=== PATIENT | female | born 1960 | race Caucasian/White ===

== ENCOUNTER 2020-01-20 09:04 | Outpatient (REF) | payer BC, MEDICARE, SELFPAY ==
--- NOTE | 2020-01-22 08:09 | MHC.AU.AEV ---
Adult Audiological Evaluation Date of Visit: 01/20/20 Reason for Appointment: Audiologic re-evaluation due to question of change in hearing ability. Previous Hearing Test Results: 10/31/2018 Asymmetric moderate to profound sensorineural hearing loss with conductive components for the right ear in the low frequencies. Speech understanding was 84% for the right ear and 92% for the left ear at a listening level of 85 dB HL. Medical History: Medical History: Kera reports no changes in medical conditions or medications since last year's test. Hearing Instrument History- Right Ear: Booster Plant Operator: Phonak Model: TapnScrapeo V 90-13 Serial Number: [id number] Battery Size: 13 Warranty: 12/20/2019 Hearing Instrument History- Left Ear: Booster Plant Operator: Landpointak Model: TapnScrapeo V 90-13 Serial Number: [id number] Battery Size: 13 Warranty: 12/20/2019 Otoscopy: Right Ear: Unremarkable Left Ear: Unremarkable Tympanometry: Right Ear: Normal Middle Ear System (Type A) Left Ear: Normal Middle Ear System (Type A) Hearing Evaluation: Transducer(s) Used: Insert Earphones Bone Conduction Method: Conventional Audiometry Stimuli Used: Pure Tones Right Ear: Description of Hearing: Moderately-severe to severe mixed hearing loss Left Ear: Description of Hearing: Moderate to profound sensorineural hearing loss Speech Recognition Threshold (SRT): Method Used: Monitored Live Voice Stimuli Used: Spondee Words Right Ear: 50 Left Ear: 55 Word Discrimination: Method: Recorded Lists Word Lists Used: NU-6 Right Ear: 75% at 85 dB HL Left Ear: 80% at 85 dB HL Comparison: Compared to the most recent evaluation: Hearing is stable. Recommendations: Recommendations: Audiological re-evaluation in one year. Recommendations (Other): The right hearing aid has been intermittent. Sending out for repair. Diagnosis: Primary Diagnosis: H90.3 Bilateral Sensorineural Hearing Loss Services Performed: Services Performed: Comprehensive Audiological Evaluation (CPT 54030) Tympanometry (CPT 36614) Signature: Provider: Constantino Montiel CCC-A Adult Audiological Evaluation AUD- Audiology Adult New Evaluation Start: 01/20/20 14:05 Freq: Status: Discharge Protocol: Activity Type Activity Date Activity User E-Sign Co-Sign Detail Recorded Client Recorded Date Recorded By Document 01/20/20 14:05 LUCRECIA [id number] 01/20/20 14:06 LUCRECIA 01/20/20 14:05 Adult Audiological Evaluation [Date of Visit] -Date of Visit 01/20/20 [Reason For Appointment] -Reason for Appointment Audiologic re- evaluation due to question of change in hearing ability . -Does patient feel they have a hearing Yes loss? -If Yes, Which Ear? Both Ears [Previous Testing] -Has hearing been tested previously? Yes -Previous Hearing Test Results 10/31/2018 Asymmetric moderate to profound sensorineural hearing loss with conductive components for the right ear in the low frequencies. Speech understanding was 84% for the right ear and 92% for the left ear at a listening level of 85 dB HL. [Medical History] -Medical History Kera reports no changes in medical conditions or medications since last year 's test. [Hearing Instrument History- Right Ear] -Booster Plant Operator- Right Ear Phonak -Model- Right Audeo V 90-13 -Serial Number- Right [id number] -Battery Size- Right 13 -Warranty- Right 12/20/2019 -Dispensed By [facility] -Date of Fittin09/30/2015 [Hearing Instrument History- Left] -Booster Plant Operator- Left Ear Phonak -Model- Left Audeo V 90-13 -Serial Number- Left [id number] -Battery Size- Left 13 -Warranty- Left 12/20/2019 -Dispensed By [facility] [Otoscopy] -Otoscopy- Right Ear Unremarkable -Otoscopy- Left Ear Unremarkable [Tympanometry] -Tympanometry- Right Ear Normal Middle Ear System ( Type A) -Tympanometry- Left Ear Normal Middle Ear System ( Type A) [Otoacoustic Emissions] -Otoacoustic Emissions- Right Ear Not performed at today's visit. -OAE Analysis- Right Ear Not performed at today's visit [Hearing Test Methods] -Transducer(s) Used Insert Earphones,Bone Conduction -Method Conventional Audiometry -Stimuli Used Pure Tones [Hearing- Right Ear] -Description of Hearing- Right Ear Moderately- severe to severe mixed hearing loss [Hearing- Left Ear] -Description of Hearing- Left Ear Moderate to profound sensorineural hearing loss [Speech Recognition Threshold (SRT)] -Method Used Monitored Live Voice -Stimuli Used Spondee Words -Speech Recognition Threshold (SRT)- 50 Right Ear (in dBHL) -Speech Recognition Threshold (SRT)- 55 Left Ear (in dBHL) [Word Discrimination] -Method: Recorded Lists -Word Lists Used: NU-6 -Word Discrimination- Right Ear 75% at 85 dB HL -Word Discrimination- Left Ear 80% at 85 dB HL [Compared to Most Recent Evaluation:] -Compared to the most recent Hearing is evaluation: stable. [Recommendations] -Recommendations Audiological re -evaluation in one year. -Recommendations (Other) The right hearing aid has been intermittent. Sending out for repair. [Diagnosis] -Primary Diagnosis: H90.3 Bilateral Sensorineural Hearing Loss -Secondary Diagnosis: N/A [Services Performed] -Services Performed Comprehensive Audiological Evaluation (CPT 73909), Tympanometry ( CPT 20370) Signature [Signature] -Provider Constantino Montiel, [facility]
--- NOTE | 2020-01-22 08:11 | MHC.AU.P13 ---
Adult Audiological Evaluation Date of Visit: 01/20/20 Reason for Appointment: Audiologic re-evaluation due to question of change in hearing ability. Has hearing been tested previously?: Yes Previous Hearing Test Results: 10/31/2018 Asymmetric moderate to profound sensorineural hearing loss with conductive components for the right ear in the low frequencies. Speech understanding was 84% for the right ear and 92% for the left ear at a listening level of 85 dB HL. Otoscopy: Right Ear: Unremarkable Left Ear: Unremarkable Tympanometry: Right Ear: Normal Middle Ear System (Type A) Left Ear: Normal Middle Ear System (Type A) Otoacoustic Emissions Results: Not performed at today's visit. Hearing Evaluation: Right Ear: Description of Hearing: Moderately-severe to severe mixed hearing loss Left Ear: Description of Hearing: Moderate to profound sensorineural hearing loss Soundfield (At Least the Better Ear): Description of Hearing: Speech Recognition Threshold (SRT): Right Ear: 50 Left Ear: 55 Soundfield: Word Discrimination: Right Ear: 75% at 85 dB HL Left Ear: 80% at 85 dB HL Soundfield: Comparison: Compared to the most recent evaluation: Hearing is stable. Recommendations: Recommendations: Audiological re-evaluation in one year. Recommendations (Other): The right hearing aid has been intermittent. Sending out for repair. Diagnosis: Primary Diagnosis: H90.3 Bilateral Sensorineural Hearing Loss Services Performed: Services Performed: Comprehensive Audiological Evaluation (CPT 46109) Tympanometry (CPT 28453) Signature: Provider: Constantino Montiel, [facility]
== END 2020-01-20 09:05 | disposition home or self-care (01) ==
LOC: HO.SH 09:04
PROVIDERS: PCP Internal Medicine; Visit Provider Internal Medicine
DX: H90.3 Sensorineural hearing loss, bilateral (principal)
CPT/HCPCS: 92557; 92567

== ENCOUNTER 2020-02-03 11:05 | Outpatient (REF) | payer SELFPAY | END 2020-02-03 11:06 | disposition home or self-care (01) | LOC: HO.HAP 11:05 | PROVIDERS: PCP Internal Medicine; Referring Provider Internal Medicine; Visit Provider Internal Medicine | DX: Z13.89 Encounter for screening for other disorder (principal) | CPT/HCPCS: V5014 ==

== ENCOUNTER 2020-02-21 14:57 | Outpatient (REF) | payer SELFPAY ==
--- NOTE | 2020-03-02 15:26 | MHC.AU.P13 ---
Hearing Instrument Follow-Up- Binaural Date of Visit: 02/24/20 Chemist Helper Used: Right Ear: Kindergarten Prep Teacher: Model: Audeo V 90-13 Serial Number: [id number] Warranty: 12/20/2019 Battery Size: 13 Color: Celso Beige Type of Mold: integrated c-shell Type of Wax Guard: Cerustop Dispensed By: [facility] Date of Fittin09/30/2015 Left Ear: Kindergarten Prep Teacher: Phonak Model: Audeo V 90-13 Serial Number: [id number] Warranty: 12/20/2019 Battery Size: 13 Color: Celso Beige Type of Mold: integrated c-shell Type of Wax Guard: CeruStop Dispensed By: [facility] Follow-Up Summary: Patient's hearing aid was dropped off on Monday afternoon 02/21/2020, and was addressed Monday morning, 02/24/2020. Patient reports she dropped the hearing aid. The cShell was broken in two pieces. The hearing aid itself is still working. Patient reports the battery door felt difficult to open/close. Upon inspection, the battery door appeared to open/close normally. We did not have her color in stock, so an extra battery door was requested in celso beige to replace preventatively. A cShell was ordered, with instructions to remake #[id number]. Discussed $85 fee for new cShell with patient. Recommendations: Recommendations: Patient will be contacted when materials have arrived. Recommendations (Other): Hearing aid is in the repair drawer for the time being. Diagnosis Code(s): Primary Diagnosis: H90.3 Bilateral Sensorineural Hearing Loss Signature: Provider: Cosntantino Donaldson, [facility]
== END 2020-02-21 14:58 | disposition home or self-care (01) ==
LOC: HO.HAP 14:57
PROVIDERS: PCP Internal Medicine; Referring Provider Internal Medicine; Visit Provider Internal Medicine
DX: Z13.89 Encounter for screening for other disorder (principal)
CPT/HCPCS: 92700

== ENCOUNTER 2020-03-12 09:24 | Outpatient (REF) | payer SELFPAY | END 2020-03-12 09:25 | disposition home or self-care (01) | LOC: HO.HAP 09:24 | PROVIDERS: PCP Internal Medicine; Referring Provider Internal Medicine; Visit Provider Internal Medicine | DX: Z46.1 Encounter for fitting and adjustment of hearing aid (principal) | CPT/HCPCS: V5264 ==

== ENCOUNTER 2020-11-20 15:01 | Outpatient (REF) | payer SELFPAY | END 2020-11-20 15:02 | disposition home or self-care (01) | LOC: HO.HAP 15:01 | PROVIDERS: Visit Provider Internal Medicine | DX: Z13.89 Encounter for screening for other disorder (principal) ==

== ENCOUNTER 2020-12-03 13:28 | Outpatient (REF) | payer BC, SELFPAY | END 2020-12-03 13:29 | disposition home or self-care (01) | LOC: HO.HAP 13:28 | PROVIDERS: Visit Provider Internal Medicine | DX: Z46.1 Encounter for fitting and adjustment of hearing aid (principal); H90.3 Sensorineural hearing loss, bilateral | CPT/HCPCS: V5264 ==

== ENCOUNTER 2021-04-12 10:05 | Outpatient (REF) | payer SELFPAY ==
--- NOTE | 2021-04-12 11:43 | MHC.AU.HFU ---
Hearing Instrument Follow-Up- Binaural Date of Visit: 04/12/21 Right Ear: Sec Accountant: Phonak Model: BrandFiestaeo V90-13 Serial Number: [id number] Repair Warranty: 12/20/2019 Battery Size: 13 Color: Lakshmi Beige Type of Mold: cShell Type of Wax Guard: Cerustop Dispensed By: [facility] Date of Fittin09/30/2015 Left Ear: Sec Accountant: Phonak Model: Audeo V90-13 Serial Number: [id number] Repair Warranty: 12/20/2019 Battery Size: 13 Color: Lakshmi Beige Type of Mold: integrated c-shell #[id number] warranty expires 03/31/2021 Type of Wax Guard: CeruStop Dispensed By: [facility] Date of Fittin09/30/2015 Follow-Up Summary: Patient reports the left rafter cutting machine operator shorts out intermittently. Called [employer] Customer Service. Per [employer] Court[employer] remake will be processed and sent as warranty just on 03/31/21. Reference # [id number]. Recommendations:Schedule appointment when left c-shell remake is received. Diagnosis Code(s): Primary Diagnosis: H90.3 Bilateral Sensorineural Hearing Loss Signature:Provider: Constantino Montiel
== END 2021-04-12 10:06 | disposition home or self-care (01) ==
LOC: HO.HAP 10:05
PROVIDERS: Visit Provider Internal Medicine
DX: Z13.89 Encounter for screening for other disorder (principal)

== ENCOUNTER 2021-04-20 10:04 | Outpatient (REF) | payer SELFPAY | END 2021-04-20 10:05 | disposition home or self-care (01) | LOC: HO.HAP 10:04 | PROVIDERS: Visit Provider Internal Medicine | DX: Z13.89 Encounter for screening for other disorder (principal) ==

== ENCOUNTER 2022-03-14 11:09 | Outpatient (REF) | payer BC, MEDICARE, SELFPAY | END 2022-03-14 11:10 | disposition home or self-care (01) | LOC: HO.SH 11:09 | PROVIDERS: Visit Provider Registered Nurse | DX: H90.3 Sensorineural hearing loss, bilateral (principal) | CPT/HCPCS: 92552; 92556 ==